=== PATIENT | female | born 1960 | race Caucasian/White ===

== ENCOUNTER → 2018-11-17 | Outpatient (CLI) | payer BC ==
--- NOTE | 2018-11-20 07:08 | MM ---
Reason for exam: screening (asymptomatic). Last mammogram was performed 2 years and 11 months ago. History: Patient is postmenopausal and had first child at age 31. MG Screening Mammo w CAD Bilateral CC and MLO view(s) were taken. Prior study comparison: December 18, 2015, bilateral MG screening mammo w CAD. June 22, 2013, bilateral digital screening mammo w/CAD. There are multiple less than 1 cm equal oval densities in the breasts. There is a benign-appearing calcification in the right breast. ASSESSMENT: Incomplete: need additional imaging evaluation, BI-RAD 0 RECOMMENDATION: Special view mammogram and ultrasound of the right breast.
== END ==
LOC: RADMAMWWP 10:43
PROVIDERS: ATTEND Family Medicine
DX: Z12.31 Encounter for screening mammogram for malignant neoplasm of breast (principal)
CPT/HCPCS: 77067

== ENCOUNTER → 2018-12-08 | Outpatient (CLI) | payer BC ==
--- NOTE | 2018-12-09 11:34 | MM ---
Reason for exam: additional evaluation requested from abnormal screening. Last mammogram was performed 1 month ago. History: Patient is postmenopausal and had first child at age 31. Physical Findings: Nurse did not find any significant physical abnormalities on exam. MG 3D Work Up W/Cad RYAN Bilateral spot compression CC, spot compression MLO, and ML view(s) were taken. Prior study comparison: November 17, 2018, bilateral MG screening mammo w CAD. December 18, 2015, bilateral MG screening mammo w CAD. There are scattered fibroglandular densities. Finding: There is an equal density (isodense), circumscribed round mass in the upper outer quadrant, middle, subareolar position of the right breast and anterior upper outer quadrant right CC view. These results were verbally communicated with the patient and result sheet given to the patient on 12/08/18. ASSESSMENT: Incomplete: need additional imaging evaluation, BI-RAD 0 RECOMMENDATION: Ultrasound of both breasts.
--- NOTE | 2018-12-09 11:37 | USB ---
Reason for exam: additional evaluation requested from abnormal screening. History: Patient is postmenopausal and had first child at age 31. US Breast Workup Limited RYAN Right limited breast ultrasound including focal area of concern, retroareolar and axilla demonstrates a 0.6 x 0.3 x 0.4cm mixed lesion at 10 o'clock and a 0.3 x 0.2 x 0.2cm lesion too small to characterize at 12 o'clock. Left limited breast ultrasound including focal area of concern, retroareolar and axilla demonstrates a 0.5 x 0.2 x 0.4cm mixed lesion at 3 o'clock, a 1.5 x 1.0 x 0.4cm mixed lesion at 9 o'clock, a 0.3 x 0.2 x 0.2cm lesion too small to characterize at 12 o'clock, a 0.4 x 0.7cm solid lesion with shadowing at 12 o'clock for which a biopsy is recommended and a 0.5 x 0.3 x 0.6cm mixed lesion at 11:30. These results were verbally communicated with the patient and result sheet given to the patient on 12/08/18. ASSESSMENT: Suspicious, BI-RAD 4 RECOMMENDATION: Ultrasound core biopsy of the left breast. (12 o'clock) Called Dr. Buchanan with mammographic findings and has scheduled an appointment for the patient for 12/22/18 at 2:[address] Alejandra. Biopsy scheduled for 12/23/18 at 11:20. PRELIMINARY REPORT CALLED AND FAXED TO DR. ALEJANDRA ON 12/09/18.
== END ==
LOC: RADMAMWWP 08:58
PROVIDERS: ATTEND Family Medicine
DX: R92.8 Other abnormal and inconclusive findings on diagnostic imaging of breast (principal)
CPT/HCPCS: 77062; 77066

== ENCOUNTER → 2018-12-19 | Outpatient (CLI) | payer BC ==
--- NOTE | 2018-12-20 09:34 | XR ---
EXAMINATION TYPE: XR chest 2V DATE OF EXAM: 12/19/2018 COMPARISON: Prior chest x-ray 09/30/2016 HISTORY: Chest pain, chest congestion TECHNIQUE: Frontal and lateral views of the chest are obtained. FINDINGS: Patient is rotated. Prominent lung volumes are again noted and suggest underlying COPD. The re is no focal air space opacity, pleural effusion, or pneumothorax seen. The cardiac silhouette siz e is within normal limits. The osseous structures are intact. IMPRESSION: No acute cardiopulmonary process. Correlate for COPD.
== END | disposition home or self-care (01) ==
LOC: RADXRMAIN 15:57
PROVIDERS: ATTEND Family Medicine
DX: R07.89 Other chest pain (principal)
CPT/HCPCS: 71046

== ENCOUNTER → 2018-12-22 | Outpatient (CLI) | payer BC ==
[2018-12-22 14:16] VITALS: BP 121/85; PULSE 79; RESP 18; TEMP 97.8; BMI 25.8
--- NOTE | 2018-12-22 14:38 | P.GSHP ---
History of Present Illness H&P Date: 12/22/18 Chief Complaint: abnormal left breast ultrasound Ana Lilia is a 58-year-old white female who presents following a routine screening mammogram of the breast. After mammogram was recommended that she undergo bilateral ultrasound and an ultrasound 8.7 cm solid lesion was noted at the 12 o'clock position of the left breast. Patient does not feel any masses in her breast. She has no skin changes in her breast. She has no abnormal nipple discharge or changes. She has no history of any trauma or infection in her breast. Family history: 1.father: neck cancer testicular cancer Hormonal history: menarche: 14 : 3, 2 children 1 [place], first at 29, breast fed: no menopause: ablation at 52 hot flashes until 55 BCP: 6 years hormones: none Past Surgical History: none Past Medical History: 1. high cholesterol 2. HTN 3. depression Social History: smoke: Diminished to very rare at this time used to smoke a pack every 3 days alcohol: weekly drugs: none - Constitutional Constitutional: Reports sweats - EENT Eyes: denies blurred vision, denies pain Ears: deny: decreased hearing, tinnitus Ears, nose, mouth and throat: Denies headache, Denies sore throat - Breasts Breasts: bilateral: as per HPI - Cardiovascular Cardiovascular: Reports high blood pressure, Denies chest pain, Denies shortness of breath - Respiratory Respiratory: Reports cough - Gastrointestinal Gastrointestinal: Denies abdominal pain, Denies diarrhea, Denies nausea, Denies vomiting - Genitourinary (Female) Genitourinary: Denies dysuria, Denies hematuria - Menstruation Menstruation: Reports postmenopausal - Musculoskeletal Musculoskeletal: Denies myalgias - Integumentary Integumentary: Denies pruritus, Denies rash - Neurological Neurological: Denies numbness, Denies weakness - Psychiatric Comment: uses Zoloft after stopping this at this time Psychiatric: Denies anxiety, Denies depression - Endocrine Endocrine: Denies fatigue, Denies weight change - Hematologic/Lymphatic Comment: baby aspirin - Allergic/Immunologic Allergic/Immunologic: Reports as per HPI Past Medical History Past Medical History: Hyperlipidemia, Hypertension History of Any Multi-Drug Resistant Organisms: None Reported Past Surgical History: Uterine Ablation Past Anesthesia/Blood Transfusion Reactions: No Reported Reaction Past Psychological History: No Psychological Hx Reported Smoking Status: Current some day smoker Past Alcohol Use History: Occasional Past Drug Use History: None Reported Medications and Allergies Home Medications Medication Instructions Recorded Confirmed Type Sertraline HCl [Zoloft] 50 mg PO DAILY 07/25/14 12/12/18 History Aspirin [Adult Low Dose Aspirin EC] 81 mg PO DAILY 12/12/18 12/12/18 History Hydrochlorothiazide [Hydrodiuril] 12.5 mg PO DAILY 12/12/18 12/12/18 History Lisinopril [Zestril] 5 mg PO DAILY 12/12/18 12/12/18 History Pravastatin Sodium 80 mg PO DAILY 12/12/18 12/12/18 History Allergies Allergy/AdvReac Type Severity Reaction Status Date / Time codeine Allergy Nausea & Verified 12/12/18 12:53 Vomiting Surgical - Exam BMI 25.9 - General well developed, well nourished, no distress - Eyes normal ocular movement - ENT no hearing loss, no congestion - Neck no masses, trachea midline - Respiratory normal respiratory effort, clear to auscultation - Cardiovascular Rhythm: regular Heart Sounds: normal: S1, S2 - Abdomen Abdomen: soft - Integumentary normal turgor - Neurologic no disoriented, no combative - Musculoskeletal normal gait, normal posture - Psychiatric oriented to time, oriented to person, oriented to place, speech is normal, memory intact Breast examination: Right breast: Multi-positional exam no dominant masses or nodules of concern nipple is inverted which is chronic Right axilla: No adenopathy of concern Left breast: Multiple positional exam fibrocystic changes, chronic nipple inversion no dominant masses or nodules of concern Left axilla: No adenopathy of concern Results Mammogram and ultrasound results reviewed Assessment and Plan Assessment: Impression: 1. Radiographic abnormality left breast 2. Fibrocystic breast changes 3. Chronically inverted nipples 4. Hypertension 5. High cholesterol Plan: 1. Ultrasound-guided core biopsy left breast 2. Follow-up 1 week after biopsy 3. Medical management of medical conditions Cc: Dr. Buchanan
== END ==
LOC: WWCWWP 13:56
PROVIDERS: ATTEND Surgery
DX: Z53.9 Procedure and treatment not carried out, unspecified reason (principal)

== ENCOUNTER → 2018-12-23 | Day surgery (SDC) | payer BC ==
[2018-12-23 10:42] VITALS: BP 122/81; PULSE 64; RESP 16; TEMP 98.7; BMI 26.5
--- NOTE | 2018-12-26 08:38 | USB ---
US Discontinued Breast Bx LT EXAMINATION TYPE: US discontinued breast bx LT, US biopsy breast VAD LT DATE OF EXAM: 12/23/2018 COMPARISON: Bilateral breast ultrasound dated 12/08/2018 CLINICAL HISTORY: Left breast mass for which biopsy was recommended. TECHNIQUE: Preprocedural targeted ultrasound was performed of the left breast at the 12:00 position at the location of the previously seen 4 x 7 mm solid lesion with shadowing for which biopsy was recommended. On preprocedural imaging multiple areas of dense breast tissue create shadowing from dense tissue and ligaments however no reproducible solid lesion was seen. Multiple small cystic masses are appreciated at the 12:00 position measuring 3 mm, 2 mm, 3 mm, and 4 mm. These are benign findings. Findings and recommendation for short-term three-month precautionary left breast ultrasound were discussed with the patient. IMPRESSION: BI-RADS 3-probably benign. No suspicious sonographic mass was seen on preprocedural ultrasound at the 12:00 position. Therefore short-term three-month follow-up ultrasound will be performed as a precautionary measure. RECOMMENDATION: Ultrasound of the left breast in 3 months.
== END ==
LOC: RADUSWWP 10:16
PROVIDERS: ATTEND Surgery
DX: N60.12 Diffuse cystic mastopathy of left breast (principal); Z53.8 Procedure and treatment not carried out for other reasons; R92.8 Other abnormal and inconclusive findings on diagnostic imaging of breast; Z88.5 Allergy status to narcotic agent

== ENCOUNTER 2019-04-05 07:19 | Day surgery (SDC) | payer BC ==
[2019-03-31 10:40] VITALS: BMI 25.7
[~2019-04-05 07:19] MED LIST: LACTATED RINGERS 1,000 ML IV SCH; LIDOCAINE 1% 20 ML VIAL (10MG/ML) FOR IV START INTRADERMA PRN
[2019-04-05 07:32] VITALS: RESP 16; TEMP 96.8
--- NOTE | 2019-04-05 07:41 | P.GSHP ---
History of Present Illness H&P Date: 04/05/19 CHIEF COMPLAINT: Colon screen HISTORY OF PRESENT ILLNESS: The patient is a 59-year-old female who presents for colon screen. Lower endoscopy was offered for further evaluation and management. PAST MEDICAL HISTORY: Please see list. PAST SURGICAL HISTORY: Please see list. MEDICATIONS: Please see list. ALLERGIES: Please see list. SOCIAL HISTORY: No illicit drug use FAMILY HISTORY: No reports of Crohn disease or ulcerative colitis. REVIEW OF ORGAN SYSTEMS: CONSTITUTIONAL: No reports of fevers or chills. PHYSICAL EXAM: VITAL SIGNS: Stable GENERAL: Well-developed pleasant in no acute distress. HEENT: No scleral icterus. Extraocular movements grossly intact. Moist buccal mucosa. NECK: Supple without lymphadenopathy. CHEST: Unlabored respirations. Equal bilateral excursions. CARDIOVASCULAR: Regular rate and rhythm. Distal 2+ pulses. ABDOMEN: Soft, nontender, nondistended. MUSCULOSKELETAL: No clubbing, cyanosis, or edema. ASSESSMENT: 1. Colon screen. PLAN: 1. Recommend proceeding with a lower endoscopy Past Medical History Past Medical History: Hyperlipidemia, Hypertension Additional Past Medical History / Comment(s): hx. colon polyps, bicuspid valve- dr. monitoring History of Any Multi-Drug Resistant Organisms: None Reported Past Surgical History: Uterine Ablation Additional Past Surgical History / Comment(s): colonoscopy Past Anesthesia/Blood Transfusion Reactions: No Reported Reaction Smoking Status: Current some day smoker - Past Family History Father Family Medical History: Cancer Medications and Allergies Home Medications Medication Instructions Recorded Confirmed Type Sertraline HCl [Zoloft] 50 mg PO DAILY 07/25/14 04/05/19 History Aspirin [Adult Low Dose Aspirin EC] 81 mg PO DAILY 12/12/18 04/05/19 History Hydrochlorothiazide [Hydrodiuril] 12.5 mg PO DAILY 12/12/18 04/05/19 History Lisinopril [Zestril] 5 mg PO DAILY 12/12/18 03/31/19 History Pravastatin Sodium 80 mg PO HS 12/12/18 04/05/19 History Ezetimibe [Zetia] 10 mg PO DAILY 03/31/19 04/05/19 History L.acidoph,Paracasei, B.lactis 1 each PO DAILY 03/31/19 04/05/19 History [Probiotic] Allergies Allergy/AdvReac Type Severity Reaction Status Date / Time codeine Allergy Nausea & Verified 03/31/19 10:30 Vomiting Surgical - Exam Vital Signs Temp Pulse Resp BP Pulse Ox 96.8 F L 80 16 133/86 97 04/05/19 07:30 04/05/19 07:30 04/05/19 07:30 04/05/19 07:30 04/05/19 07:30
[2019-04-05] MEDS ORDERED: PROPOFOL 10 MG/ML 20 ML VIAL IV ONE (08:01)
--- NOTE | 2019-04-05 08:30 | P.PCN ---
Date of Procedure: 04/05/19 Description of Procedure: PREOPERATIVE DIAGNOSIS: Colonoscopy screening POSTOPERATIVE DIAGNOSIS: Colonoscopy screening Transverse colon polyp. Sigmoid colon polyps Severe sigmoid diverticulosis External hemorrhoids, stage II Internal hemorrhoids, stage I Rectal colon polyps OPERATION: Colonoscopy to the ileocecal valve and appendiceal orifice. Colonoscopy with multiple cold forceps biopsies. SURGEON: Lia Jean MD. ANESTHESIA: MAC. INDICATIONS: The patient is a 59-year-old female who presents for colonoscopy screening. Last colonoscopy 10 years ago. Benefits and risks were described and informed consent was obtained. DESCRIPTION OF PROCEDURE: The patient had undergone Suprep. He had been brought into the operating room and laid in the left lateral decubitus position. After adequate intravenous sedation, the rectum was examined with 2% lidocaine jelly. External hemorrhoids were encountered. The rectal tone was within normal limits. No lesions were palpated in the rectal vault. An Olympus colonoscope was advanced until the ileocecal valve and appendiceal orifice were clearly viewed. The prep was good with visualization of the mucosal folds. Severe diverticulosis was encountered. Multiple colonic polyps were found and cold forcep biopsy. No evidence of focal colitis was found. Retroflexion of the scope demonstrated grade 1 internal hemorrhoids without active bleeding or inflammation. The colon was desufflated. The patient had tolerated the procedure well. Withdrawal time was over 6 minutes. FINDINGS: Aronchick preparation quality scale 1 (1-5) Internal hemorrhoids, grade 1 External hemorrhoids, grade 2. No arteriovenous malformations. Severe sigmoid diverticulosis redundant sigmoid colon requiring abdominal wall pressure Removal of 4 polyps: - Cold forceps biopsy at 30 cm from the anal verge, 4 mm polyp, sigmoid colon - Cold forceps biopsy at 25 cm from the anal verge, 3 mm polyp, sigmoid colon - Cold forceps biopsy at 10 cm from the anal verge, 4 mm polyp, rectum - Cold forceps biopsy at mid transverse colon, 5 mm polyp. No focal colitis. RECOMMENDATIONS: Given severity of tubular adenomas, recommend repeat colonoscopy 3 years, 2021. Plan - Discharge Summary Discharge Rx Participant: Yes New Discharge Prescriptions: No Action Sertraline HCl [Zoloft] 50 mg PO DAILY Lisinopril [Zestril] 5 mg PO DAILY Hydrochlorothiazide [Hydrodiuril] 12.5 mg PO DAILY Pravastatin Sodium 80 mg PO HS Aspirin [Adult Low Dose Aspirin EC] 81 mg PO DAILY L.acidoph,Paracasei, B.lactis [Probiotic] 1 each PO DAILY Ezetimibe [Zetia] 10 mg PO DAILY Discharge Medication List Sertraline HCl [Zoloft] 50 mg PO DAILY 07/25/14 [History] Aspirin [Adult Low Dose Aspirin EC] 81 mg PO DAILY 12/12/18 [History] Hydrochlorothiazide [Hydrodiuril] 12.5 mg PO DAILY 12/12/18 [History] Lisinopril [Zestril] 5 mg PO DAILY 12/12/18 [History] Pravastatin Sodium 80 mg PO HS 12/12/18 [History] Ezetimibe [Zetia] 10 mg PO DAILY 03/31/19 [History] L.acidoph,Paracasei, B.lactis [Probiotic] 1 each PO DAILY 03/31/19 [History] Follow up Appointment(s)/Referral(s): Lia Jean MD [STAFF PHYSICIAN] - As Needed Patient Instructions/Handouts: Diverticulosis (DC), Colorectal Polyps (DC), Diverticulosis Diet (GEN) Activity/Diet/Wound Care/Special Instructions: Repeat colonoscopy in 3 years, 2021 Discharge Disposition: HOME SELF-CARE
[2019-04-05 08:56] VITALS: BP 118/70; PULSE 66
== END 2019-04-05 09:16 | disposition home or self-care (01) ==
LOC: ORWHC2ENDO 07:19
PROVIDERS: ATTEND Surgery Plastic and Reconstructive Surgery
DX: Z12.11 Encounter for screening for malignant neoplasm of colon (principal); D12.5 Benign neoplasm of sigmoid colon; D12.3 Benign neoplasm of transverse colon; K63.5 Polyp of colon; K62.1 Rectal polyp; K64.0 First degree hemorrhoids; K64.1 Second degree hemorrhoids; K57.30 Diverticulosis of large intestine without perforation or abscess without bleeding; Q43.8 Other specified congenital malformations of intestine; E78.5 Hyperlipidemia, unspecified; I10 Essential (primary) hypertension; F32.9 Major depressive disorder, single episode, unspecified; F17.200 Nicotine dependence, unspecified, uncomplicated; Z79.82 Long term (current) use of aspirin; Z79.899 Other long term (current) drug therapy; Z88.5 Allergy status to narcotic agent
CPT/HCPCS: 88305; 45380; J2704

== ENCOUNTER → 2019-04-24 | Outpatient (CLI) | payer BC ==
--- NOTE | 2019-04-24 11:28 | USB ---
Reason for exam: follow-up at short interval from prior study. History: Patient is postmenopausal and had first child at age 31. US discontinued breast bx LT of the left breast, December 23, 2018. Physical Findings: Nurse Summary: all soft, nodular, movable (nurse ts). US Breast LT Left complete breast ultrasound includes all four quadrants, the retroareolar region and axilla. Finding demonstrates a 0.3cm questionable duct at 10 o'clock, bilobed cyst, questionable duct ectasia, seen previously as well. Numerous additional benign cyst throughout. No suspicious lesion at the previous 12 o'clock position. These results were verbally communicated with the patient and result sheet given to the patient on 04/24/19. ASSESSMENT: Probably benign, BI-RAD 3 RECOMMENDATION: Follow-up diagnostic mammogram of both breasts in 6 months.
== END | disposition home or self-care (01) ==
LOC: RADUSWWP 10:18
PROVIDERS: ATTEND Family Medicine
DX: R92.8 Other abnormal and inconclusive findings on diagnostic imaging of breast (principal)

== ENCOUNTER → 2020-05-01 | Outpatient (CLI) | payer BC ==
--- NOTE | 2020-05-01 11:55 | MM ---
Reason for exam: additional evaluation requested from prior study. Last mammogram was performed 1 year and 5 months ago. History: Patient is postmenopausal and had first child at age 31. US discontinued breast bx LT of the left breast, December 23, 2018. Physical Findings: Nurse did not find any significant physical abnormalities on exam. MG Diagnostic Mammo w CAD RYAN Bilateral CC and MLO view(s) were taken. Prior study comparison: December 08, 2018, bilateral MG 3d work up w/cad RYAN. November 17, 2018, bilateral MG screening mammo w CAD. The breast tissue is heterogeneously dense. This may lower the sensitivity of mammography. Persistent 7mm density upper outer quadrant left breast 8cm from nipple. These results were verbally communicated with the patient and result sheet given to the patient on 05/01/20. ASSESSMENT: Incomplete: need additional imaging evaluation, BI-RAD 0 RECOMMENDATION: Ultrasound of the left breast.
--- NOTE | 2020-05-01 11:56 | USB ---
Reason for exam: additional evaluation requested from abnormal screening. History: Patient is postmenopausal and had first child at age 31. US discontinued breast bx LT of the left breast, December 23, 2018. US Breast Limited LT Left limited breast ultrasound including focal area of concern, retroareolar and axilla demonstrates a 4 x 2 x 4mm cystic lesion at 12 o'clock, a 9 x 3 x 7mm cystic cluster at 12 o'clock, a 4 x 3 x 5mm cystic lesion at 3 o'clock and a 11mm cystic lesion at the posterior nipple. These results were verbally communicated with the patient and result sheet given to the patient on 05/01/20. ASSESSMENT: Benign, BI-RAD 2 RECOMMENDATION: Routine screening mammogram of both breasts in 1 year.
== END | disposition home or self-care (01) ==
LOC: RADMAMWWP 10:10
PROVIDERS: ATTEND Family Medicine
DX: R92.8 Other abnormal and inconclusive findings on diagnostic imaging of breast (principal)
CPT/HCPCS: 77066

== ENCOUNTER 2020-07-01 12:17 | Observation (INO) | payer BC ==
[2020-07-01] MEDS ORDERED: NITROGLYCERIN OINT 1 INCH/GM PACKET TOPICAL STA (12:50)
[2020-07-01] MEDS ORDERED: ASPIRIN 81 MG PO STA (12:50)
[2020-07-01] MEDS ORDERED: SODIUM CHLORIDE 0.9% 500 ML 500 ML IV STA (12:50)
--- NOTE | 2020-07-01 12:50 | ED ---
General Adult HPI - General Chief complaint: Chest Pain Stated complaint: Dizzy, Chest Pressure Time Seen by Provider: 07/01/20 12:25 Source: patient, family, RN notes reviewed, old records reviewed Mode of arrival: ambulatory Limitations: no limitations - History of Present Illness Initial comments: This is a 60-year-old female with a past medical history significant for smoking high blood pressure and high cholesterol. Patient states she's been having intermittent right-sided chest pain over the last 2-3 days. Patient states she's been nauseated on occasion with this and lightheaded. Patient states today the pain is been constant and she describes it as a pressure in her chest. Patient states it is ongoing currently. Patient denies any syncopal episodes or near syncopal episodes. Patient denies any headache patient denies numbness or weakness. Patient denies any palpitations. Patient states she is not short of breath with the chest pain. Patient denies any abdominal pain patient denies nausea vomiting diarrhea. Patient denies any swelling to her legs or calf tenderness - Related Data Home Medications Medication Instructions Recorded Confirmed Sertraline HCl [Zoloft] 50 mg PO DAILY 07/25/14 04/05/19 Aspirin [Adult Low Dose Aspirin EC] 81 mg PO DAILY 12/12/18 04/05/19 Pravastatin Sodium 80 mg PO HS 12/12/18 04/05/19 hydroCHLOROthiazide [Hydrodiuril] 12.5 mg PO DAILY 12/12/18 04/05/19 lisinopriL [Zestril] 5 mg PO DAILY 12/12/18 03/31/19 Ezetimibe [Zetia] 10 mg PO DAILY 03/31/19 04/05/19 L.acidoph,Paracasei, B.lactis 1 each PO DAILY 03/31/19 04/05/19 [Probiotic] Allergies Allergy/AdvReac Type Severity Reaction Status Date / Time codeine Allergy Nausea & Verified 07/01/20 12:27 Vomiting Review of Systems ROS Statement: Those systems with pertinent positive or pertinent negative responses have been documented in the HPI. ROS Other: All systems not noted in ROS Statement are negative. Past Medical History Past Medical History: Hyperlipidemia, Hypertension Additional Past Medical History / Comment(s): hx. colon polyps, bicuspid valve- drWindy monitoring History of Any Multi-Drug Resistant Organisms: None Reported Past Surgical History: Uterine Ablation Additional Past Surgical History / Comment(s): colonoscopy Past Anesthesia/Blood Transfusion Reactions: No Reported Reaction Past Psychological History: No Psychological Hx Reported Smoking Status: Current some day smoker Past Alcohol Use History: Occasional Past Drug Use History: None Reported - Past Family History Father Family Medical History: Cancer General Exam - General Exam Comments Initial Comments: GENERAL: Patient is well-developed and well-nourished. Patient is nontoxic and well- hydrated and is in mild distress. ENT: Neck is soft and supple. No significant lymphadenopathy is noted. Oropharynx is clear. Moist mucous membranes. Neck has full range of motion without eliciting any pain. EYES: The sclera were anicteric and conjunctiva were pink and moist. Extraocular movements were intact and pupils were equal round and reactive to light. Eyelids were unremarkable. PULMONARY: Unlabored respirations. Good breath sounds bilaterally. No audible rales rhonchi or wheezing was noted. CARDIOVASCULAR: There is a regular rate and rhythm without any murmurs gallops or rubs. ABDOMEN: Soft and nontender with normal bowel sounds. SKIN: Skin is clear with no lesions or rashes and otherwise unremarkable. NEUROLOGIC: Patient is alert and oriented x3. Cranial nerves II through XII are grossly intact. Motor and sensory are also intact. Normal speech, volume and content. Symmetrical smile. MUSCULOSKELETAL: Normal extremities with adequate strength and full range of motion. No lower extremity swelling or edema. No calf tenderness. LYMPHATICS: No significant lymphadenopathy is noted PSYCHIATRIC: Normal psychiatric evaluation. Limitations: no limitations Course Vital Signs 07/01/20 12:24 Temperature 98.1 F Pulse Rate 82 Respiratory 18 Rate Blood Pressure 144/94 O2 Sat by Pulse 99 Oximetry Medical Decision Making - Medical Decision Making EKG shows normal sinus rhythm at 73 bpm IA interval 166 dresses 88 QT interval 4 2 QTC is 442 per patient's EKG shows no ST segment elevation or depression. Chest x-ray shows no acute abnormalities. Patient states and nitroglycerin paste did decrease her pain. Heparin was started the patient is in stable angina picture. Heparin and aspirin Nitropaste the floor. I spoke with Dr. Gonzalez agreed to admit the patient admitted the patient remaining orders. - Lab Data Result diagrams: 07/01/20 12:36 07/01/20 12:36 Lab Results 08/24/20 08/24/20 08/24/20 Range/Units 12:36 12:36 12:36 WBC 9.1 (3.8-10.6) k/uL RBC 5.11 (3.80-5.40) m/uL Hgb 14.8 (11.4-16.0) gm/dL Hct 45.3 (34.0-46.0) % MCV 88.8 (80.0-100.0) fL MCH 28.9 (25.0-35.0) pg MCHC 32.6 (31.0-37.0) g/dL RDW 12.6 (11.5-15.5) % Plt Count 477 H (150-450) k/uL Neutrophils % 65 % Lymphocytes % 27 % Monocytes % 4 % Eosinophils % 2 % Basophils % 1 % Neutrophils # 5.9 (1.3-7.7) k/uL Lymphocytes # 2.5 (1.0-4.8) k/uL Monocytes # 0.4 (0-1.0) k/uL Eosinophils # 0.2 (0-0.7) k/uL Basophils # 0.1 (0-0.2) k/uL PT 9.9 (9.0-12.0) sec INR 1.0 (<1.2) APTT 23.1 (22.0-30.0) sec D-Dimer <0.17 (<0.60) mg/L FEU Sodium 137 (137-145) mmol/L Potassium 4.6 (3.5-5.1) mmol/L Chloride 104 (98-107) mmol/L Carbon Dioxide 26 (22-30) mmol/L Anion Gap 7 mmol/L BUN 11 (7-17) mg/dL Creatinine 0.49 L (0.52-1.04) mg/dL Est GFR (CKD-EPI)AfAm >90 (>60 ml/min/1.73 sqM) Est GFR (CKD-EPI)NonAf >90 (>60 ml/min/1.73 sqM) Glucose 109 H (74-99) mg/dL Calcium 10.0 (8.4-10.2) mg/dL Magnesium 2.1 (1.6-2.3) mg/dL Total Bilirubin 0.7 (0.2-1.3) mg/dL AST 28 (14-36) U/L ALT 26 (4-34) U/L Alkaline Phosphatase 56 (38-126) U/L Troponin I (0.000-0.034) ng/mL NT-Pro-B Natriuret Pep pg/mL Total Protein 7.4 (6.3-8.2) g/dL Albumin 4.7 (3.5-5.0) g/dL 07/01/20 07/01/20 Range/Units 12:36 12:36 WBC (3.8-10.6) k/uL RBC (3.80-5.40) m/uL Hgb (11.4-16.0) gm/dL Hct (34.0-46.0) % MCV (80.0-100.0) fL MCH (25.0-35.0) pg MCHC (31.0-37.0) g/dL RDW (11.5-15.5) % Plt Count (150-450) k/uL Neutrophils % % Lymphocytes % % Monocytes % % Eosinophils % % Basophils % % Neutrophils # (1.3-7.7) k/uL Lymphocytes # (1.0-4.8) k/uL Monocytes # (0-1.0) k/uL Eosinophils # (0-0.7) k/uL Basophils # (0-0.2) k/uL PT (9.0-12.0) sec INR (<1.2) APTT (22.0-30.0) sec D-Dimer (<0.60) mg/L FEU Sodium (137-145) mmol/L Potassium (3.5-5.1) mmol/L Chloride (98-107) mmol/L Carbon Dioxide (22-30) mmol/L Anion Gap mmol/L BUN (7-17) mg/dL Creatinine (0.52-1.04) mg/dL Est GFR (CKD-EPI)AfAm (>60 ml/min/1.73 sqM) Est GFR (CKD-EPI)NonAf (>60 ml/min/1.73 sqM) Glucose (74-99) mg/dL Calcium (8.4-10.2) mg/dL Magnesium (1.6-2.3) mg/dL Total Bilirubin (0.2-1.3) mg/dL AST (14-36) U/L ALT (4-34) U/L Alkaline Phosphatase (38-126) U/L Troponin I <0.012 (0.000-0.034) ng/mL NT-Pro-B Natriuret Pep 66 pg/mL Total Protein (6.3-8.2) g/dL Albumin (3.5-5.0) g/dL Critical Care Time Critical Care Time: Yes Total Critical Care Time: 35 Disposition Clinical Impression: Unstable angina pectoris Disposition: ADMITTED IP TO THIS HOSP Referrals: Damir Buchanan DO [Primary Care Provider] - 1-2 days Time of Disposition: 14:40
[2020-07-01 13:33] LABS: Basophils # (A) 0.1 k/uL (0-0.2); Basophils % (A) 1 %; Eosinophils # (A) 0.2 k/uL (0-0.7); Eosinophils % (A) 2 %; HCT 45.3 % (34.0-46.0); HGB 14.8 gm/dL (11.4-16.0); Lymphocytes # (A) 2.5 k/uL (1.0-4.8); Lymphocytes % (A) 27 %; MCH 28.9 pg (25.0-35.0); MCHC 32.6 g/dL (31.0-37.0); MCV 88.8 fL (80.0-100.0); Mean Platelet Volume 7.1; Monocytes # (A) 0.4 k/uL (0-1.0); Monocytes % (A) 4 %; Neutrophils # (A) 5.9 k/uL (1.3-7.7); Neutrophils % (A) 65 %; Platelet Count 477 k/uL (150-450); RBC 5.11 m/uL (3.80-5.40); RDW 12.6 % (11.5-15.5); WBC 9.1 k/uL (3.8-10.6)
[2020-07-01 13:41] LABS: ALT 26 U/L (4-34); AST 28 U/L (14-36); African American GFR (CKD) >90 (>60 ml/min/1.73 sqM); Albumin 4.7 g/dL (3.5-5.0); Alkaline Phosphatase 56 U/L (38-126); Anion Gap 7 mmol/L; Blood Urea Nitrogen 11 mg/dL (7-17); Carbon Dioxide 26 mmol/L (22-30); Chloride 104 mmol/L (98-107); Glucose 109 mg/dL (74-99); Magnesium 2.1 mg/dL (1.6-2.3); Non-African American GFR(CKD) >90 (>60 ml/min/1.73 sqM); Sodium 137 mmol/L (137-145); Total Bilirubin 0.7 mg/dL (0.2-1.3); Total Protein 7.4 g/dL (6.3-8.2)
[2020-07-01 13:54] LABS: Partial Thromboplastin Time 23.1 sec (22.0-30.0); Prothrombin Time 9.9 sec (9.0-12.0)
[2020-07-01 14:02] LABS: Potassium 4.6 mmol/L (3.5-5.1)
[2020-07-01 14:08] LABS: D-Dimer <0.17 mg/L FEU (<0.60)
--- NOTE | 2020-07-01 14:13 | XR ---
EXAMINATION TYPE: XR chest 2V DATE OF EXAM: 07/01/2020 COMPARISON: 12/19/2018 HISTORY: 60-year-old female with chest pain TECHNIQUE: PA and lateral views FINDINGS: Heart normal size. Mild elongation/tortuosity of the thoracic aorta. Some mild patchy right midlung o pacity in the perihilar region. No other consolidation or pleural effusion seen. IMPRESSION: Some mild patchy atelectasis versus early developing infiltrate at the right perihilar region.
[2020-07-01] MEDS ORDERED: HEPARIN SODIUM,PORCINE 5,000 UNIT/ML 1 ML VIAL IV ONE (14:38)
[2020-07-01] MEDS ORDERED: NITROGLYCERIN SL TABS 0.4 MG TAB SUBLINGUAL PRN (14:40)
[2020-07-01] MEDS ORDERED: HEPARIN SOD,PORK IN 0.45% NACL 25,000 UNIT in 0.45% NACL 1 250ML.BAG IV SCH (14:45)
[2020-07-01] MEDS: NITROGLYCERIN OINT 1 INCH/GM PACKET TOPICAL SCH (18:20)
[2020-07-01] MEDS: ACETAMINOPHEN TAB 325 MG TAB PO PRN (19:40)
--- NOTE | 2020-07-01 22:07 | P.HPIM ---
History of Present Illness H&P Date: 07/01/20 Chief Complaint: Chest pressure History of presenting complaint: This is a pleasant 60-year-old patient of Dr. Buchanan. Chronic stable medical conditions include hypertension, hyperlipidemia, bicuspid aortic valve that is being followed. Patient started taking Zoloft when the had has slowly over time try to taper it off. Patient now presents with 2 days' history of dizziness lightheadedness and heaviness in the chest. Also had an episode of passing out with nausea. No shortness of breath. Not really related to activity. Patient's had 2 prior episodes of passing out. Admitted for the same. Patient intermittently gets leg swelling but not currently. No fever no chills no cough. She smokes about 5 cigarettes a day. Review of systems: GEN.: None EYES: None HEENT: None NECK: None RESPIRATORY: As above CARDIOVASCULAR: As above GASTROINTESTINAL: None GENITOURINARY: None MUSCULOSKELETAL: None LYMPHATICS: None HEMATOLOGICAL: None PSYCHIATRY: None NEUROLOGICAL: None Past medical history to include: Hypertension, hyperlipidemia, bicuspid aortic valve, Social history: Lives with her . Smokes about 5 cigars a day. Alcohol occasionally. Physical examination: VITAL SIGNS: 98.1, 82, 18, 144/94, 99% on room air GENERAL: [BMI 28.3, laying in bed, comfortable EYES: Pupils equal. Conjunctiva normal. HEENT: External appearance of nose and ears normal, oral cavity grossly normal. NECK: JVD not raised; masses not palpable. HEART: First and second heart sounds are normal; no edema. LUNGS: Respiratory rate normal; fair air entry. ABDOMEN: Soft, nontender, liver spleen not palpable, no masses palpable. PSYCH: Alert and oriented x3; mood and affect normal. NEUROLOGICAL: Cranial nerves grossly intact; no facial asymmetry, power and sensation grossly intact. LYMPHATICS: No lymph nodes palpable in the axilla and neck INVESTIGATIONS, reviewed in the clinical context: White count 9.1 hemoglobin 14.8 platelets 477 potassium 4.6 creatinine 0.49 Troponin I 3 negative D-dimer less than 0.17 EKG tracing personally reviewed by me-normal sinus rhythm Chest x-ray film personally reviewed by me-questionable infiltrate right perihilar area Assessment: -This is a patient presents with 2 day history of chest pressure lightheaded dizzy in an episode of passing out. Cardiac risk factors include hypertension hyperlipidemia and nicotine dependence. EKG and troponins are normal. Left main disease needs to be ruled out. -Chronic nicotine dependence patient cigarette smoker -Essential hypertension -Hyperlipidemia -Bicuspid aortic valve Plan: 2-D echocardiogram to be done. Patient on aspirin. Nitropaste. Patient will be kept nothing by mouth after midnight for a stress test. Care was discussed with the patient question answered. Past Medical History Past Medical History: Hyperlipidemia, Hypertension Additional Past Medical History / Comment(s): hx. colon polyps, bicuspid valve- dr. ovalles/ [facility]/ History of Any Multi-Drug Resistant Organisms: None Reported Past Surgical History: Uterine Ablation Additional Past Surgical History / Comment(s): colonoscopy Past Anesthesia/Blood Transfusion Reactions: No Reported Reaction Past Psychological History: No Psychological Hx Reported Smoking Status: Current every day smoker Past Drug Use History: None Reported - Past Family History Father Family Medical History: Cancer Medications and Allergies Home Medications Medication Instructions Recorded Confirmed Type Pravastatin Sodium 80 mg PO DAILY 12/12/18 07/01/20 History lisinopriL [Zestril] 5 mg PO DAILY 12/12/18 07/01/20 History Ezetimibe [Zetia] 10 mg PO DAILY 03/31/19 07/01/20 History Aspirin 81 mg PO DAILY 07/01/20 07/01/20 History Sertraline [Zoloft] 25 mg PO DAILY 07/01/20 07/01/20 History hydroCHLOROthiazide 25 mg PO DAILY 07/01/20 07/01/20 History Allergies Allergy/AdvReac Type Severity Reaction Status Date / Time codeine AdvReac Nausea & Verified 07/01/20 14:54 Vomiting Physical Exam Vitals: Vital Signs Temp Pulse Pulse Resp BP BP Pulse Ox 07/01/20 15:00 99 F 68 18 136/81 98 07/01/20 12:24 98.1 F 82 18 144/94 99 Intake and Output 07/01/20 07/01/20 07/01/20 06:59 14:59 22:59 Intake Total 240 Balance 240 Intake: Oral 240 Other: # Voids 1 Weight 72.575 kg Results CBC & Chem 7: 07/01/20 12:36 07/01/20 12:36 Labs: Abnormal Lab Results - Last 24 Hours (Table) 07/01/20 07/01/20 Range/Units 12:36 12:36 Plt Count 477 H (150-450) k/uL Creatinine 0.49 L (0.52-1.04) mg/dL Glucose 109 H (74-99) mg/dL Thrombosis Risk Factor Assmnt - Choose All That Apply Any of the Below Risk Factors Present?: No Other Risk Factors: No Other congenital or acquired thrombophilia - If yes, enter type in comment: No Thrombosis Risk Factor Assessment Level: Very Low Risk
[2020-07-02] MEDS: NITROGLYCERIN OINT 1 INCH/GM PACKET TOPICAL SCH ×2 (00:01→06:25)
[2020-07-02 02:58] LABS: Cholesterol 226 mg/dL (<200); HDL Cholesterol 45 mg/dL (40-60); LDL Cholesterol,Calculated 129 mg/dL (0-99); Triglycerides 262 mg/dL (<150)
[2020-07-02] MEDS: ACETAMINOPHEN TAB 325 MG TAB PO PRN (04:22)
[2020-07-02 04:35] VITALS: TEMP 97.8
--- NOTE | 2020-07-02 08:01 | P.CRDCN ---
History of Present Illness Consult date: 07/02/20 Requesting physician: Michael Gonzalez Reason for Consult (text): Unstable angina Chief complaint: dizziness, chest pressure History of present illness: This is a pleasant 60-year-old female patient with a past medical history of hypertension, hyperlipidemia, bicuspid aortic valve which is monitored by her primary care physician with periodic echocardiograms, in current smoker. She has a history of 3 episodes of syncope in the last 3 years or so at which time she will become nauseous, diaphoretic, very dizzy and lightheaded M has brief loss of consciousness. She had one of these episodes a couple days ago and the following day did not feel well. Complained of a pressure or tightness in her chest and feeling dizzy and lightheaded throughout the day. This prompted her to come to the emergency department. The episodes of syncope occur usually while she is sitting in the sun drinking wine. Chest x-ray on admission showed some mild patchy atelectasis versus early developing infiltrate at the right perihilar region. EKG shows normal sinus rhythm with no evidence of acute ischemia. Labs on admission show normal white blood cell count and hemoglobin, platelet count 477, d-dimer negative, potassium 4.6, BUN 11, creatinine 0.49, NT proBNP 66 and troponins negative 3. Blood pressure was initially high and is under good control this morning. She is currently on lisinopril 5 mg by mouth daily, hydrochlorothiazide 25 mg by mouth daily, Zoloft 25 mg by mouth daily, pravastatin 80 mg by mouth daily, aspirin 81 mg by mouth daily and that he had 10 mg by mouth daily. Past Medical History Past Medical History: Hyperlipidemia, Hypertension Additional Past Medical History / Comment(s): hx. colon polyps, bicuspid valve- dr. ovalles/ [place]/ History of Any Multi-Drug Resistant Organisms: None Reported Past Surgical History: Uterine Ablation Additional Past Surgical History / Comment(s): colonoscopy Past Anesthesia/Blood Transfusion Reactions: No Reported Reaction Past Psychological History: No Psychological Hx Reported Smoking Status: Current every day smoker Past Drug Use History: None Reported - Past Family History Father Family Medical History: Cancer Medications and Allergies Home Medications Medication Instructions Recorded Confirmed Type Pravastatin Sodium 80 mg PO DAILY 12/12/18 07/01/20 History lisinopriL [Zestril] 5 mg PO DAILY 12/12/18 07/01/20 History Ezetimibe [Zetia] 10 mg PO DAILY 03/31/19 07/01/20 History Aspirin 81 mg PO DAILY 07/01/20 07/01/20 History Sertraline [Zoloft] 25 mg PO DAILY 07/01/20 07/01/20 History hydroCHLOROthiazide 25 mg PO DAILY 07/01/20 07/01/20 History Allergies Allergy/AdvReac Type Severity Reaction Status Date / Time codeine AdvReac Nausea & Verified 07/01/20 14:54 Vomiting Physical Exam Vitals: Vital Signs Temp Pulse Pulse Resp BP BP Pulse Ox 07/02/20 03:00 97.8 F 85 18 123/76 97 07/01/20 21:00 98.1 F 63 18 116/70 98 07/01/20 15:00 99 F 68 18 136/81 98 07/01/20 12:24 98.1 F 82 18 144/94 99 Intake and Output 07/01/20 07/02/20 07/02/20 22:59 06:59 14:59 Intake Total 755.027 71.414 Balance 755.027 71.414 Intake: Intake, IV Titration 65.027 71.414 Amount Heparin Sod,Pork in 0.45% 65.027 71.414 NaCl 25,000 unit In 0.45 % NaCl 1 250ml.bag @ 12 UNITS/KG/HR 8.709 mls/hr IV .Q24H [facility] Rx#: [id number] Oral 690 Other: Voiding Method Toilet # Voids 1 1 PHYSICAL EXAMINATION: This is a 60-year-old female in no apparent distress at the time of my examination. VITAL SIGNS: Blood pressure 116/70, heart rate 63, respirations 18, temp 98.1F. Patient is 98 % on room air. HEENT: Head is atraumatic, normocephalic. Pupils are equal, round. Sclerae anicteric. Conjunctivae are clear. Mucous membranes of the mouth are moist. Neck is supple. There is no elevated jugular venous pressure. No carotid bruit is he brenna. CHEST EXAMINATION: Clear to auscultation bilaterally. No wheezes rales or rhonchi. Respirations even and nonlabored. HEART EXAMINATION: Heart regular, positive S1 and S2. No S3. No S4. With a soft systolic murmur. ABDOMEN: Soft, nontender. Bowel sounds are heard. No organomegaly noted. EXTREMITIES: 2+ peripheral pulses with no evidence of peripheral edema and no calf tenderness noted. NEUROLOGIC EXAMINATION: Patient is awake, alert and oriented x3. Results 07/01/20 12:36 07/01/20 12:36 Cardiac Enzymes 07/01/20 07/01/20 07/01/20 Range/Units 12:36 12:36 15:21 AST 28 (14-36) U/L Troponin I <0.012 <0.012 (0.000-0.034) ng/mL 07/01/20 Range/Units 18:29 AST (14-36) U/L Troponin I <0.012 (0.000-0.034) ng/mL Coagulation 07/01/20 07/01/20 07/02/20 Range/Units 12:36 21:17 06:03 PT 9.9 (9.0-12.0) sec APTT 23.1 53.5 H 47.4 H (22.0-30.0) sec Lipids 07/01/20 Range/Units 12:36 Triglycerides 262 H (<150) mg/dL Cholesterol 226 H (<200) mg/dL HDL Cholesterol 45 (40-60) mg/dL CBC 07/01/20 Range/Units 12:36 WBC 9.1 (3.8-10.6) k/uL RBC 5.11 (3.80-5.40) m/uL Hgb 14.8 (11.4-16.0) gm/dL Hct 45.3 (34.0-46.0) % Plt Count 477 H (150-450) k/uL Comprehensive Metabolic Panel 07/01/20 Range/Units 12:36 Sodium 137 (137-145) mmol/L Potassium 4.6 (3.5-5.1) mmol/L Chloride 104 (98-107) mmol/L Carbon Dioxide 26 (22-30) mmol/L BUN 11 (7-17) mg/dL Creatinine 0.49 L (0.52-1.04) mg/dL Glucose 109 H (74-99) mg/dL Calcium 10.0 (8.4-10.2) mg/dL AST 28 (14-36) U/L ALT 26 (4-34) U/L Alkaline Phosphatase 56 (38-126) U/L Total Protein 7.4 (6.3-8.2) g/dL Albumin 4.7 (3.5-5.0) g/dL Current Medications Generic Name Dose Route Start Last Admin Trade Name Freq PRN Reason Stop Dose Admin Acetaminophen 650 mg 07/01/20 19:35 07/02/20 04:22 Tylenol Tab PO 650 mg Q6HR PRN Administration Fever and/ or Pain Aspirin 325 mg 07/02/20 09:00 Aspirin PO DAILY [facility] Ezetimibe 10 mg 07/02/20 09:00 Zetia PO DAILY [facility] Hydrochlorothiazide 25 mg 07/02/20 09:00 Hydrodiuril PO DAILY [facility] Heparin Sodium/Sodium Chloride 250 mls @ 8.709 mls/hr 07/01/20 14:45 07/02/20 06:51 25,000 unit/ Sodium Chloride IV 12 units/kg/hr .Q24H [facility] 8.709 mls/hr Titration Protocol 12 UNITS/KG/HR Lisinopril 5 mg 07/02/20 09:00 Zestril PO DAILY [facility] Nitroglycerin 0.4 mg 07/01/20 14:40 Nitrostat SUBLINGUAL Q5M PRN Chest Pain Nitroglycerin 1 inch 07/01/20 18:00 07/02/20 06:25 Nitro-Bid Oint TOPICAL Not Given Q6HR [facility] Pravastatin Sodium 80 mg 07/02/20 09:00 Pravachol PO DAILY [facility] Sertraline HCl 25 mg 07/02/20 09:00 Zoloft PO DAILY [facility] Intake and Output 07/01/20 07/02/20 07/02/20 22:59 06:59 14:59 Intake Total 755.027 71.414 Balance 755.027 71.414 Intake: Intake, IV Titration 65.027 71.414 Amount Heparin Sod,Pork in 0.45% 65.027 71.414 NaCl 25,000 unit In 0.45 % NaCl 1 250ml.bag @ 12 UNITS/KG/HR 8.709 mls/hr IV .Q24H [facility] Rx#: [id number] Oral 690 Other: Voiding Method Toilet # Voids 1 1 07/01/20 12:36 07/01/20 12:36 EKG Interpretations (text) Sinus rhythm Assessment and Plan Assessment: #1 syncope #2 chest discomfort, acute coronary event has been ruled out, troponins negative 3, no evidence of acute ischemia noted on EKG #3 bicuspid aortic valve #4 hypertension #5 hyperlipidemia Plan: From cardiology's perspective we'll obtain a 2-D echo with Doppler to assess cardiac structure and function. We'll set the patient up for a stress echo to rule out underlying ischemia. Carotid duplex study. Check orthostatic blood pressures. Further recommendations to follow. PATTERN FILER note has been reviewed, I agree with a documented findings and plan of care. Patient was seen and examined.
[2020-07-02 08:12] VITALS: PULSE 69; RESP 16
[2020-07-02] MEDS ORDERED: lisinopriL 5 MG TAB PO SCH (09:00)
[2020-07-02] MEDS ORDERED: ASPIRIN 325 MG TAB PO SCH (09:00)
[2020-07-02] MEDS ORDERED: SERTRALINE 25 MG TAB PO SCH (09:00)
[2020-07-02] MEDS ORDERED: EZETIMIBE 10 MG TAB PO SCH (09:00)
[2020-07-02] MEDS ORDERED: PRAVASTATIN SODIUM 80 MG TAB PO SCH (09:00)
[2020-07-02] MEDS ORDERED: ASPIRIN 81 MG PO SCH (09:00)
[2020-07-02] MEDS ORDERED: hydroCHLOROthiazide 25 MG TAB PO SCH (09:00)
--- NOTE | 2020-07-02 09:01 | US ---
EXAMINATION TYPE: US carotid duplex BILAT DATE OF EXAM: 07/02/2020 COMPARISON: NONE CLINICAL HISTORY: dizziness, syncope. Smoker x years EXAM MEASUREMENTS: RIGHT: Peak Systolic Velocity (PSV) cm/sec ----- Right CCA: 75.4 ----- Right ICA: 105.6 ----- Right ECA: 67.7 ICA/CCA ratio: 1.4 RIGHT: End Diastole cm/sec ----- Right CCA: 29.2 ----- Right ICA: 51.2 ----- Right ECA: 15.4 LEFT: Peak Systolic Velocity (PSV) cm/sec ----- Left CCA: 77.5 ----- Left ICA: 86.7 ----- Left ECA: 57.2 ICA/CCA ratio: 1.1 LEFT: End Diastole cm/sec ----- Left CCA: 31.2 ----- Left ICA: 41.8 ----- Left ECA: 12.7 VERTEBRALS (direction of flow): Right Vertebral: Antegrade Left Vertebral: Antegrade Rhythm: Normal Minimal atherosclerotic disease, primarily at the carotid bulbs. Incidental left thyroid findings: multiple thyroid nodules are seen. The largest thyroid nodule is se en within the left inferior lobe measuring 4.8 x 2.5 x 2.4 cm, which is solid, hypoechoic, lobulated margin, with scattered calcifications. IMPRESSION: 1. No evidence of hemodynamically significant stenosis of the bilateral carotid arteries. Any stenosi s that may be present is less than 50%. 2. Multiple thyroid nodules, incompletely evaluated on current exam. The left thyroid demonstrates a 4.8 cm TI-RADS 5 - highly suspicious nodule, for which fine-needle aspiration is recommended. Complet e dedicated thyroid ultrasound is also recommended. Criteria for Assigning % of Stenosis / Diameter reduction (Estimation based on the indirect measurements of the internal carotid artery velocities (ICA PSV). 1. Normal (no stenosis)=ICA PSV < 125 cm/s: ratio < 2.0: ICA EDV<40 cm/s. 2. Less than 50% stenosis=ICA PSV < 125 cm/s: ratio < 2.0: ICA EDV<40 cm/s. 3. 50 to 69% stenosis=ICA PSV of 125 to 230 cm/s: ration 2.0 ? 4.0: ICA EDV 40-100 cm/s. 4. Greater than 70% stenosis to near occlusion= ICA PSV > 230 cm/s: ratio > 4.0: ICA EDV > 100 cm/s. 5. Near occlusion= ICA PSV velocities may be low or undetectable: variable ratio and ICA EDV. 6. Total occlusion=unable to detect flow.
[2020-07-02 09:41] VITALS: BMI 28.3
--- NOTE | 2020-07-02 13:21 | ECHOS ---
STRESS ECHOCARDIOGRAM LUMASON: Vial INDICATIONS: Chest pressure, vertigo, syncope. MEDICATIONS: BASELINE HEART RATE: 66 BASELINE BLOOD PRESSURE: 111/60 MAXIMUM HEART RATE: 167 MAXIMUM BLOOD PRESSURE: 169/110 85% MPHR: 136 100% MPHR: 160 METS: MAXIMUM STAGE REACHED: 4 TOTAL EXERCISE TIME: 10:09 CLINICAL INFORMATION: Baseline rhythm is sinus mechanism, rate of 66, normal axis, intervals, normal echocardiogram. Baseline blood pressure 111/60 mmHg. Patient exercised on Ramiro protocol for 10 minute, 9 seconds reaching peak rate of 167 beats per minute which is equal to 100% maximum predicted heart rate. Peak blood pressure 171/60 mmHg. Electrocardiograph monitoring revealed no evidence of diagnostic ischemic ST deviation. FINDINGS: Baseline echocardiogram revealed normal wall motion. At peak exercise, there was normal wall motion augmentation with no hypokinesis or dyskinesis. CONCLUSION: 1. Good exercise tolerance with normal electrocardiograph response to exercise. 2. Normal stress echocardiogram with no evidence of stress-induced ischemia. MMODL / IJN: [id number] /
[2020-07-02] MEDS ORDERED: RX INFO: IV CONTRAST WAS GIVEN 1 EACH MISC MISCELLANE PRN (13:56)
--- NOTE | 2020-07-02 13:59 | ECHOF ---
Referral Reason:chest pain, h/o bicuspid aortic valve MEASUREMENTS -------- HEIGHT: 160.0 cm WEIGHT: 72.6 kg BP: RVIDd: 2.6 cm (< 3.3) IVSd: 1.1 cm (0.6 - 1.1) LVIDd: 4.0 cm (3.9 - 5.3) LVPWd: 1.2 cm (0.6 - 1.1) EDV(Teich): 68 ml IVSs: 1.4 cm LVIDs: 2.5 cm LVPWs: 1.6 cm %IVS Thck: 26 % ESV(Teich): 21 ml EF(Teich): 69 % %FS: 38 % SV(Teich): 47 ml LA Diam: 2.8 cm (2.7 - 3.8) LALs A4C: 4.1 cm LAAs A4C: 11.5 cm LAESV A-L A4C: 28 ml LAESV MOD A4C: 26 ml LALs A2C: 4.4 cm LAAs A2C: 14.5 cm LAESV A-L A2C: 41 ml LAESV MOD A2C: 40 ml LAESV(A-L): 35 ml LAESV Index (A-L): 19.80 ml/m Ao Diam: 2.5 cm (2.0 - 3.7) AV Cusp: 1.8 cm (1.5 - 2.6) MV EXCURSION: 11.562 mm (> 18.000) MV EF SLOPE: 84 mm/s (70 - 150) EPSS: 0.2 cm MV E Jamarcus: 0.66 m/s MV DecT: 262 ms MV Dec Anasco: 2.5 m/s MV A Jamarcus: 0.82 m/s MV E/A Ratio: 0.81 MV PHT: 76 ms LVOT Vmax: 1.22 m/s LVOT maxP.98 mmHg LVOT Vmax: 1.24 m/s LVOT Vmean: 0.89 m/s LVOT maxP.14 mmHg LVOT meanP.58 mmHg LVOT Env.Ti: 249 ms LVOT VTI: 22.2 cm AV Vmax: 2.20 m/s AV maxP.40 mmHg AV Vmax: 2.27 m/s AV Vmean: 1.46 m/s AV maxP.59 mmHg AV meanP.95 mmHg AV Env.Ti: 275 ms AV VTI: 40.1 cm TR Vmax: 2.38 m/s TR maxP.74 mmHg RAP: 5.00 mmHg RVSP: 27.74 mmHg FINDINGS -------- Sinus rhythm. This was a technically good study. LV size, wall thickness and systolic function are normal, with an EF greater than 55%. The left saray tricular size is normal. The right ventricle is normal in size. Normal LA size by volume 22+/-6 ml/m2. The right atrial size is normal. Peak/mean gradient across the Aortic Valve is 20.59mmHg / 9.95mmHg. Aortic valve is functionally bi cuspid and is mildly thickened. The mitral valve is normal. Mild mitral regurgitation is present. The tricuspid valve appears structurally normal. Mild tricuspid regurgitation present. Right vent ricular systolic pressure is normal at < 35 mmHg. There is no pulmonic regurgitation present. The aortic root size is normal. There is no pericardial effusion. CONCLUSIONS -------- 1. LV size, wall thickness and systolic function are normal, with an EF greater than 55%. 2. The left ventricular size is normal. 3. Normal LA size by volume 22+/-6 ml/m2. 4. Peak/mean gradient across the Aortic Valve is 20.59mmHg / 9.95mmHg. 5. Aortic valve is functionally bicuspid and is mildly thickened. 6. Mild mitral regurgitation is present. 7. Mild tricuspid regurgitation present. 8. There is no pericardial effusion. RESOURCE AGENT: Ana Corrales RDCS
--- NOTE | 2020-07-02 14:48 | CT ---
EXAMINATION TYPE: CT angio chest DATE OF EXAM: 07/02/2020 COMPARISON: Chest x-ray from yesterday. HISTORY: possible PE, chest pain for a few days CT DLP: 179.6 mGycm. Automated Exposure Control for Dose Reduction was Utilized. CONTRAST: CTA scan of the thorax is performed with IV Contrast, patient injected with 70cc mL of Isovue 370, pu lmonary embolism protocol. MIP Images are created on CT scanner and reviewed. FINDINGS: LUNGS: Mild biapical pleural/parenchymal scarring. Some dependent and linear atelectasis in both lowe r lobes. No concerning greater than 4 mm noncalcified nodules or masses. There is 3 mm calcified subp leural nodule or granuloma left lower lobe axial image 73. No pleural effusion or pneumothorax seen b ilaterally. MEDIASTINUM: There is suboptimal study with heterogeneity and aortic contrast the right and left hear t systems but no convincing CT evidence for acute pulmonary embolism. Ascending aorta measures up to 3.3 cm diameter image 57. No thoracic aortic dissection identified. There are no greater than 1 cm n oncalcified hilar or mediastinal lymph nodes. No cardiomegaly or pericardial effusion is seen. [place] nary artery calcification is present which is noted marker for underlying coronary artery disease. OTHER: Skyler moderate multilevel spurring in the thoracic spine. IMPRESSION: No CT evidence for acute pulmonary embolism. No suspicious acute pulmonary process.
[2020-07-02 15:46] VITALS: BP 112/68
--- NOTE | 2020-07-02 19:30 | P.DS ---
Providers Date of admission: 07/01/20 14:40 Expected date of discharge: 07/02/20 Attending physician: Michael Gonzalez Consults: 07/01/20 14:40 Consult Physician Urgent Consulting Provider: [facility] Consult Reason/Comments: Unstable angina Do you want consulting provider notified?: Yes Primary care physician: Damir Buchanan [facility] Course: Chief Complaint: Chest pressure History of presenting complaint: This is a pleasant 60-year-old patient of Dr. Buchanan. Chronic stable medical conditions include hypertension, hyperlipidemia, bicuspid aortic valve that is being followed. Patient started taking Zoloft when the had has slowly over time try to taper it off. Patient now presents with 2 days' history of dizziness lightheadedness and heaviness in the chest. Also had an episode of passing out with nausea. No shortness of breath. Not really related to activity. Patient's had 2 prior episodes of passing out. Admitted for the same. Patient intermittently gets leg swelling but not currently. No fever no chills no cough. She smokes about 5 cigarettes a day. Carotid Doppler was unremarkable. Stress echocardiogram was negative for ischemia. Chest CTA was negative for PE. 2-D echocardiogram was unremarkable. We'll have the patient follow-up as an outpatient with cardiology. If symptoms recur patient will then need Holter monitor or event monitor Consultation: Dr. Vázquez from cardiology Physical examination: VITAL SIGNS: 97.8, 69, 16, 112/68, 99% room air GENERAL: Sitting up, comfortable EYES: Pupils equal. Conjunctiva normal. NECK: JVD not raised; masses not palpable. HEART: First and second heart sounds are normal; no edema. LUNGS: Respiratory rate normal; fair air entry. ABDOMEN: Soft, nontender, liver spleen not palpable, no masses palpable. PSYCH: Alert and oriented x3; mood and affect normal. INVESTIGATIONS, reviewed in the clinical context: LDL 129 White count 9.1 hemoglobin 14.8 platelets 477 potassium 4.6 creatinine 0.49 Troponin I 3 negative D-dimer less than 0.17 EKG tracing personally reviewed by me-normal sinus rhythm Chest x-ray film personally reviewed by me-questionable infiltrate right perihilar area 2-D echocardiogram EF preserved Stress echocardiogram negative for ischemia Current Doppler negative for any synovitis stenosis Assessment: -Possibly vasovagal syncope -Chronic nicotine dependence patient cigarette smoker -Essential hypertension -Hyperlipidemia -Bicuspid aortic valve Disposition: Home Patient Condition at Discharge: Stable Plan - Discharge Summary Discharge Rx Participant: No New Discharge Prescriptions: No Action lisinopriL [Zestril] 5 mg PO DAILY Pravastatin Sodium 80 mg PO DAILY Ezetimibe [Zetia] 10 mg PO DAILY Sertraline [Zoloft] 25 mg PO DAILY Aspirin 81 mg PO DAILY hydroCHLOROthiazide 25 mg PO DAILY Discharge Medication List Pravastatin Sodium 80 mg PO DAILY 12/12/18 [History] lisinopriL [Zestril] 5 mg PO DAILY 12/12/18 [History] Ezetimibe [Zetia] 10 mg PO DAILY 03/31/19 [History] Aspirin 81 mg PO DAILY 07/01/20 [History] Sertraline [Zoloft] 25 mg PO DAILY 07/01/20 [History] hydroCHLOROthiazide 25 mg PO DAILY 07/01/20 [History] Follow up Appointment(s)/Referral(s): Jolynn Vázquez MD [STAFF PHYSICIAN] - 3 Weeks ([facility] will call you with an appointment.) Damir Buchanan DO [Primary Care Provider] - 1-2 days (Pt would like to sche dule her own appointment. ) Patient Instructions/Handouts: Chest Pain (GEN), Syncope (GEN)
== END 2020-07-02 16:17 ==
LOC: EC 12:17 → 3NCARDOBS 14:40
PROVIDERS: ADMIT Hospitalist; ATTEND Hospitalist
DX: R07.89 Other chest pain (principal); R11.0 Nausea; R42 Dizziness and giddiness; R61 Generalized hyperhidrosis; R55 Syncope and collapse; R91.8 Other nonspecific abnormal finding of lung field; I10 Essential (primary) hypertension; E78.00 Pure hypercholesterolemia, unspecified; E78.5 Hyperlipidemia, unspecified; Q23.1 Congenital insufficiency of aortic valve; F17.210 Nicotine dependence, cigarettes, uncomplicated; F17.290 Nicotine dependence, other tobacco product, uncomplicated; Z79.82 Long term (current) use of aspirin; Z79.899 Other long term (current) drug therapy; Z88.5 Allergy status to narcotic agent; Z86.010 Personal history of colon polyps; Z98.890 Other specified postprocedural states; Z80.9 Family history of malignant neoplasm, unspecified
CPT/HCPCS: 93005 ×2; 96374; 99291; 36415; 93306; 93351; 85379; 83880; 80061; 80053; 83735; 84484; 85025; 85610; 85730 ×2; 71046; 93880; 71275; G0378 ×2; J1644 ×2; Q9967

== ENCOUNTER → 2021-07-01 | Outpatient (CLI) | payer BC ==
--- NOTE | 2021-07-01 13:05 | XR ---
EXAMINATION TYPE: XR chest 2V DATE OF EXAM: 07/01/2021 COMPARISON: Chest x-ray 07/01/2020 HISTORY: R91.8 abnormal findings lung field TECHNIQUE: Frontal and lateral views of the chest are obtained. FINDINGS: There is no focal air space opacity, pleural effusion, or pneumothorax seen. The cardiac silhouette size is within normal limits. Prominent lung volume may be indicative of underlying COPD. The osseous structures are intact, there is a slight spinal curvature. IMPRESSION: No acute cardiopulmonary process.
== END | disposition home or self-care (01) ==
LOC: RADXRMAIN 09:54
PROVIDERS: ATTEND Family Medicine
DX: R91.8 Other nonspecific abnormal finding of lung field (principal)
CPT/HCPCS: 71046

== ENCOUNTER → 2021-09-16 | Outpatient (CLI) | payer BC ==
--- NOTE | 2021-09-18 09:04 | MM ---
Reason for exam: screening (asymptomatic). Last mammogram was performed 1 year and 4 months ago. History: Patient is postmenopausal and had first child at age 31. US discontinued breast bx LT of the left breast, December 23, 2018. Physical Findings: A clinical breast exam by your physician is recommended on an annual basis and results should be correlated with mammographic findings. MG Screening Mammo w CAD Bilateral CC and MLO view(s) were taken. Prior study comparison: May 01, 2020, bilateral MG diagnostic mammo w CAD [facility]. December 08, 2018, bilateral MG 3d work up w/cad [facility]. December 18, 2015, bilateral MG screening mammo w CAD. The breast tissue is heterogeneously dense. This may lower the sensitivity of mammography. No significant changes when compared with prior studies. ASSESSMENT: Benign, BI-RAD 2 RECOMMENDATION: Routine screening mammogram of both breasts in 1 year.
== END | disposition home or self-care (01) ==
LOC: RADMAMWWP 09:11
PROVIDERS: ATTEND Family Medicine
DX: Z12.31 Encounter for screening mammogram for malignant neoplasm of breast (principal)
CPT/HCPCS: 77067

== ENCOUNTER 2022-02-04 07:40 | Day surgery (SDC) | payer BC ==
[2022-01-30 10:01] VITALS: BMI 21.7
[~2022-02-04 07:40] MED LIST changes: -LIDOCAINE 1% 20 ML VIAL (10MG/ML) FOR IV START INTRADERMA PRN
--- NOTE | 2022-02-04 08:06 | P.GSHP ---
History of Present Illness H&P Date: 02/04/22 CHIEF COMPLAINT: Colon screen HISTORY OF PRESENT ILLNESS: The patient is a 61-year-old female who presents for colon screen. Lower endoscopy was offered for further evaluation and management. PAST MEDICAL HISTORY: Please see list. PAST SURGICAL HISTORY: Please see list. MEDICATIONS: Please see list. ALLERGIES: Please see list. SOCIAL HISTORY: No illicit drug use FAMILY HISTORY: No reports of Crohn disease or ulcerative colitis. REVIEW OF ORGAN SYSTEMS: CONSTITUTIONAL: No reports of fevers or chills. PHYSICAL EXAM: VITAL SIGNS: Stable GENERAL: Well-developed pleasant in no acute distress. HEENT: No scleral icterus. Extraocular movements grossly intact. Moist buccal mucosa. NECK: Supple without lymphadenopathy. CHEST: Unlabored respirations. Equal bilateral excursions. CARDIOVASCULAR: Regular rate and rhythm. Distal 2+ pulses. ABDOMEN: Soft, nontender, nondistended. MUSCULOSKELETAL: No clubbing, cyanosis, or edema. ASSESSMENT: 1. Colon screen. PLAN: 1. Recommend proceeding with a lower endoscopy Past Medical History Past Medical History: Hyperlipidemia, Hypertension Additional Past Medical History / Comment(s): hx. colon polyps, bicuspid valve- dr. ovalles/occWindy ferrer, History of Any Multi-Drug Resistant Organisms: None Reported Past Surgical History: Uterine Ablation Additional Past Surgical History / Comment(s): colonoscopy Past Anesthesia/Blood Transfusion Reactions: No Reported Reaction Smoking Status: Current every day smoker - Past Family History Father Family Medical History: Cancer Medications and Allergies Home Medications Medication Instructions Recorded Confirmed Type lisinopriL [Zestril] 5 mg PO HS 12/12/18 01/30/22 History Ezetimibe [Zetia] 10 mg PO HS 03/31/19 01/30/22 History Sertraline [Zoloft] 25 mg PO HS 07/01/20 01/30/22 History Pravastatin Sodium [Pravachol] 80 mg PO HS 01/30/22 01/30/22 History Allergies Allergy/AdvReac Type Severity Reaction Status Date / Time codeine AdvReac Nausea & Verified 01/30/22 09:51 Vomiting
[2022-02-04 08:31] VITALS: TEMP 98.3
[2022-02-04] MEDS ORDERED: PROPOFOL 10 MG/ML 20 ML VIAL IV ONE (09:19)
--- NOTE | 2022-02-04 10:46 | P.PCN ---
Date of Procedure: 02/04/22 Description of Procedure: PREOPERATIVE DIAGNOSIS: Colonoscopy screening. Tobacco abuse disorder POSTOPERATIVE DIAGNOSIS: Colonoscopy screening. Internal and external hemorrhoids. Tobacco abuse disorder Severe sigmoid diverticulosis Chronic constipation with poor prep OPERATION: Colonoscopy to the ileocecal valve, cecum, appendiceal orifice Colonoscopy with snare polypectomy SURGEON: Lia Jean MD. ANESTHESIA: MAC. INDICATIONS: The patient is a 61-year-old female who presents for her first colonoscopy screening. Benefits and risks were described and informed consent was obtained. DESCRIPTION OF PROCEDURE: The patient had undergone Sutab prep. She had been brought into the operating room and laid in the left lateral decubitus position. After adequate intravenous sedation, the rectum was examined with 2% lidocaine jelly. External hemorrhoids were encountered. The rectal tone was loose. No lesions were palpated in the rectal vault. An Olympus colonoscope was advanced along the rectum to a very tortuous sigmoid colon. The prep was poor with semisolid stool present. The scope was then exchanged for a pediatric colonoscope. The scope was advanced to the ileocecal valve, cecum and appendiceal orifice with abdominal wall pressure. Clear visualization of mucosa was limited due to poor prep. Colonic polyps were removed. The colon was desufflated. During the procedure, the patient had bronchospasms that resolved with oxygenation. Withdrawal time was over 6 minutes. FINDINGS: [place] preparation quality scale 3+ (1-5) Tortuous sigmoid colon requiring abdominal wall pressure External prolapsed hemorrhoids, grade 3 Internal hemorrhoids, grade 3 No arteriovenous malformations. Removal of 1 polyp: - Snare polypectomy at transverse colon, 4 mm adenomatous polyp No focal colitis. RECOMMENDATIONS: 1. Tobacco sensation and counseling advised to 2 bronchospasms 2. She has poor prep will need at least 3 day colonoscopy prep 3. Repeat colonoscopy in 6 months, July 2022 due to limited colonoscopy from poor bowel prep Plan - Discharge Summary New Discharge Prescriptions: Continue lisinopriL [Zestril] 5 mg PO HS Ezetimibe [Zetia] 10 mg PO HS Sertraline [Zoloft] 25 mg PO HS Pravastatin Sodium [Pravachol] 80 mg PO HS Discharge Medication List lisinopriL [Zestril] 5 mg PO HS 12/12/18 [History] Ezetimibe [Zetia] 10 mg PO HS 03/31/19 [History] Sertraline [Zoloft] 25 mg PO HS 07/01/20 [History] Pravastatin Sodium [Pravachol] 80 mg PO HS 01/30/22 [History] Follow up Appointment(s)/Referral(s): Lia Jean MD [STAFF PHYSICIAN] - 03/03/22 Patient Instructions/Handouts: *Surgery [facility] - (Anesthesia) Endoscopy Discharge Instructions, How to Stop Smoking (DC), Diverticulosis (DC), Colorectal Polyps (GEN), Diverticulosis Diet (GEN) Activity/Diet/Wound Care/Special Instructions: Repeat colonoscopy in 6 months, July 2022 Discharge Disposition: HOME SELF-CARE
[2022-02-04 10:55] VITALS: BP 113/70; PULSE 78; RESP 16
== END 2022-02-04 11:09 | disposition home or self-care (01) ==
LOC: ORWHC2ENDO 07:40
PROVIDERS: ATTEND Surgery Plastic and Reconstructive Surgery
DX: Z12.11 Encounter for screening for malignant neoplasm of colon (principal); D12.3 Benign neoplasm of transverse colon; K57.30 Diverticulosis of large intestine without perforation or abscess without bleeding; K64.2 Third degree hemorrhoids; K64.4 Residual hemorrhoidal skin tags; Q43.8 Other specified congenital malformations of intestine; I10 Essential (primary) hypertension; E78.5 Hyperlipidemia, unspecified; Z86.010 Personal history of colon polyps; Z98.890 Other specified postprocedural states; F17.200 Nicotine dependence, unspecified, uncomplicated; Z80.9 Family history of malignant neoplasm, unspecified; Z79.899 Other long term (current) drug therapy; Z88.5 Allergy status to narcotic agent
CPT/HCPCS: 88305; 45385; J2704

== ENCOUNTER → 2022-08-10 | Outpatient (CLI) | payer BC ==
--- NOTE | 2022-08-11 09:20 | CA ---
Transthoracic Echo Report Name: Ana Lilia White Age: 62 Gender: F : 1960 Exam Date: 08/10/2022 11:54 Exam Location: [facility] Ht (in): 62 Wt (lb): 125 Ordering Physician: Damir Buchanan DO Attending/Referring Phys: Chief Digital Media Officer Ana Corrales RDCS Procedure CPT: Indications: Q23.1 AORTIC VALVE INSUFFICIENCY Cardiac Hx: Technical Quality: Good Contrast 1: Total Dose (mL): Contrast 2: Total Dose (mL): MEASUREMENTS (Male / Female) Normal Values 2D ECHO LV Diastolic Diameter PLAX 3.6 cm 4.2 - 5.9 / 3.9 - 5.3 cm LV Systolic Diameter PLAX 2.6 cm IVS Diastolic Thickness 0.9 cm 0.6 - 1.0 / 0.6 - 0.9 cm LVPW Diastolic Thickness 1.4 cm 0.6 - 1.0 / 0.6 - 0.9 cm LV Relative Wall Thickness 0.6 RV Internal Dim ED PLAX 2.0 cm LA Volume 48.6 cm??? 18 - 58 / 22 - 52 cm??? M-MODE Aortic Root Diameter MM 3.2 cm LA Systolic Diameter MM 1.7 cm LA Ao Ratio MM 0.5 MV E Point Septal Separation 0.3 cm AV Cusp Separation MM 1.2 cm DOPPLER AV Peak Velocity 205.9 cm/s AV Peak Gradient 17.0 mmHg AV Mean Velocity 144.4 cm/s AV Mean Gradient 11.4 mmHg AV Velocity Time Integral 42.6 cm LVOT Peak Velocity 97.5 cm/s LVOT Peak Gradient 3.8 mmHg MV Area PHT 2.8 cm??? Mitral E Point Velocity 54.5 cm/s Mitral A Point Velocity 75.0 cm/s Mitral E to A Ratio 0.7 MV Deceleration Time 273.5 ms MV E' Velocity 5.6 cm/s Mitral E to MV E' Ratio 9.8 TR Peak Velocity 204.0 cm/s TR Peak Gradient 16.6 mmHg Right Ventricular Systolic Press 21.6 mmHg FINDINGS Left Ventricle Left ventricular ejection fraction is estimated at 55-60 %.left ventricular cavity size normal. Mildly increased left ventricular wall thickness. Right Ventricle Normal right ventricular size and function. Right Atrium Normal right atrial size. Left Atrium Normal left atrial size. Mitral Valve Mild mitral regurgitation.structurally normal mitral valve. Aortic Valve Normal functioning Bicuspid AOV with mild stenosis, Peak gradient is 21mmHg mean gradient is 11mmHg. moderate calcification, mild aortic regurgitation Tricuspid Valve Structurally normal tricuspid valve.trace to mild tricuspid regurgitation. Pulmonic Valve Structurally normal pulmonic valve. Pericardium Normal pericardium. Aorta Normal size aortic root and proximal ascending aorta. CONCLUSIONS 1. Normal size and systolic function 2. Bicuspid aortic valve with calcified raphe, with mild aortic stenosis and aortic regurgitation 3. Mild mitral with trace to mild tricuspid regurgitation Previewed by: Dr. Jolynn Vázquez MD (Electronically Signed) Final Date: 11 August 2022 09:19
== END | disposition home or self-care (01) ==
LOC: RADECHMAIN 11:41
PROVIDERS: ATTEND Family Medicine
DX: Q23.1 Congenital insufficiency of aortic valve (principal)
CPT/HCPCS: 93306

== ENCOUNTER → 2024-04-11 | Outpatient (CLI) | payer BC ==
--- NOTE | 2024-04-12 18:36 | MM ---
Reason for Exam: Screening (asymptomatic). Last mammogram was performed 2 year(s) and 7 month(s) ago. Patient History: Menarche at age 15. First Full-Term at age 31. Late child-bearing (after 30). Postmenopausal. 12/23/2018, US discontinued breast bx LT on the left side. Risk Values: Jennifer 5 year model risk: 2.0%. NCI Lifetime model risk: 8.1%. Prior Study Comparison: 12/08/2018 Bilateral Diagnostic Mammogram, [facility]. 05/01/2020 Bilateral Diagnostic Mammogram, [facility]. 09/16/2021 Bilateral Screening Mammogram, [facility]. Tissue Density: The breasts are heterogeneously dense, which may obscure small masses. Findings: Analyzed By CAD. New nodularity lower outer quadrant right breast middle depth for which further evaluation is recommended. Chronic nodularity medial anterior left breast. Otherwise, no significant change. Overall Assessment: Incomplete: need additional imaging evaluation, BI-RAD 0 Management: Special View Mammogram of the right breast. Diagnostic Breast Ultrasound of the right breast. . [facility] will attempt to contact patient to return for supplemental views and ultrasound if indicated. Electronically signed and approved by: Genesis Fan M.D. Radiologist
== END | disposition home or self-care (01) ==
LOC: RADCTMAIN 08:52
PROVIDERS: ATTEND Family Medicine
DX: Z12.31 Encounter for screening mammogram for malignant neoplasm of breast (principal); Z12.2 Encounter for screening for malignant neoplasm of respiratory organs; Z78.0 Asymptomatic menopausal state; F17.210 Nicotine dependence, cigarettes, uncomplicated
CPT/HCPCS: 71271; 77063; 77067

== ENCOUNTER → 2024-04-20 | Outpatient (CLI) | payer BC ==
--- NOTE | 2024-04-20 11:02 | USB ---
Reason for Exam: Additional evaluation requested from abnormal screening. Patient History: Menarche at age 15. First Full-Term at age 31. Late child-bearing (after 30). Postmenopausal. 12/23/2018, US discontinued breast bx LT on the left side. Risk Values: Jennifer 5 year model risk: 2.0%. NCI Lifetime model risk: 8.1%. Technique: Method: Targeted. Prior Study Comparison: 05/01/2020 Bilateral Diagnostic Mammogram, [facility]. 09/16/2021 Bilateral Screening Mammogram, [facility]. 04/11/2024 Bilateral MG 3D screening mammo w/cad, [facility]. Findings: The lower section of the breast of the right breast, the axilla of the right breast and the retroareolar of the right breast were scanned. Septated cyst noted at the right 5:00 position 5 cm from the nipple measuring approximately 5 mm. Precautionary six-month follow-up is recommended.. Overall Assessment: Probably benign, BI-RAD 3 Management: Diagnostic Breast Ultrasound of the right breast in 6 months. A clinical breast exam by your physician is recommended on an annual basis and results should be correlated with mammographic findings. This exam should not preclude additional follow-up of suspicious palpable abnormalities. Results were given to the patient verbally at the time of exam. Electronically signed and approved by: Pavel Farr M.D. Radiologis
--- NOTE | 2024-04-20 13:44 | MM ---
Reason for Exam: Additional evaluation requested from abnormal screening. Last screening mammogram was performed less than 1 month ago. Patient History: Menarche at age 15. First Full-Term at age 31. Late child-bearing (after 30). Postmenopausal. 12/23/2018, US discontinued breast bx LT on the left side. Risk Values: Jennifer 5 year model risk: 2.0%. NCI Lifetime model risk: 8.1%. Tissue Density: Right: The breasts are heterogeneously dense, which may obscure small masses. Findings: Analyzed By CAD. 6 mm nodular density seen at the approximate location right breast. Lesion is noted 5 cm from the nipple and ultrasound is recommended. Overall Assessment: Incomplete: need additional imaging evaluation, BI-RAD 0 Management: Diagnostic Breast Ultrasound of the right breast. . Results were given to the patient verbally at the time of exam. Patient should continue monthly self-breast exams. A clinical breast exam by your physician is recommended on an annual basis. This exam should not preclude additional follow-up of suspicious palpable abnormalities. Note on Jennifer scores and lifetime risk: 1. A Jennifer score greater than 3% is considered moderate risk. If this is the case, consider specialist referral to assess eligibility for a risk reducing agent. 2. If overall lifetime risk for the development of breast cancer is 20% or higher, the patient may qualify for future screening with alternating mammogram and breast MRI. Electronically signed and approved by: Pavel Farr M.D. Radiologis
== END | disposition home or self-care (01) ==
LOC: RADMAMWWP 10:26
PROVIDERS: ATTEND Family Medicine
DX: R92.8 Other abnormal and inconclusive findings on diagnostic imaging of breast (principal)
CPT/HCPCS: 77061; 77065

== ENCOUNTER → 2024-09-14 | Outpatient (CLI) | payer BC ==
--- NOTE | 2024-09-15 22:34 | MR ---
EXAMINATION TYPE: MR brain wo con DATE OF EXAM: 09/14/2024 COMPARISON: HISTORY: Memory issues, forgetfulness, Evaluate for CVA CONTRAST: Performed utilizing 0 mL intravenous Gadobutrol gadolinium contrast. TECHNIQUE: Multiplanar, multiecho imaging on a 3.0 Thania magnet is performed through the brain. Stud y is performed within 24 hours of arrival to the hospital. The craniovertebral junction is normal. The pituitary is normal. Diffusion-weighted imaging is performed. No abnormal hyperintensity is present to suggest an acute i ntracranial infarct or acute ischemic change. There are multiple scattered punctate areas of hyperintensity on T2 and Inversion Recovery weighted s equences centrum semiovale and periventricular white matter which are non-specific but can be related to microvascular ischemic changes. Consider multiple sclerosis. Differential diagnosis could include Lyme disease, vasculitis among other etiologies. Ventricles and sulci are appropriate for the patient age. IMPRESSION: 1. Scattered deep white matter changes. Correlate for microvascular ischemic change. Consider multipl e sclerosis. [facility], , 09/15/2024 10:32 PM
== END | disposition home or self-care (01) ==
LOC: RADMRIMAIN 21:00
PROVIDERS: ATTEND Psychiatry & Neurology Neurology
DX: R90.82 White matter disease, unspecified (principal); R41.3 Other amnesia
CPT/HCPCS: 70551

== ENCOUNTER → 2024-10-20 | Outpatient (CLI) | payer BC ==
--- NOTE | 2024-10-20 10:18 | USB ---
Reason for Exam: Follow-up at short interval from prior study. Patient History: Menarche at age 15. First Full-Term at age 31. Late child-bearing (after 30). Postmenopausal. 12/23/2018, US discontinued breast bx LT on the left side. Risk Values: Jennifer 5 year model risk: 2.0%. NCI Lifetime model risk: 8.1%. Technique: Method: Targeted. Prior Study Comparison: 09/16/2021 Bilateral Screening Mammogram, [facility]. 04/11/2024 Bilateral MG 3D screening mammo w/cad, [facility]. 04/20/2024 Right MG 3D work up w/cad RT, [facility]. Findings: The lower inner quadrant of the right breast, the axilla of the right breast and the retroareolar of the right breast were scanned. There are benign-appearing cysts at the 5:00 position 5 cm nipple. This area measures 0.6 x 0.4 x 0.7 cm. Previous measurement 0.5 x 0.4 x 0.9 cm. Overall Assessment: Benign, BI-RAD 2 Management: Screening Mammogram of both breasts in 6 months. A clinical breast exam by your physician is recommended on an annual basis and results should be correlated with mammographic findings. This exam should not preclude additional follow-up of suspicious palpable abnormalities. Results were given to the patient verbally at the time of exam. [facility], , 10/20/2024 10:01 AM. Electronically signed and approved by: Blu Freitsa D.O. Radiologis
== END | disposition home or self-care (01) ==
LOC: RADUSWWP 09:39
PROVIDERS: ATTEND Family Medicine
DX: N60.01 Solitary cyst of right breast (principal); Z78.0 Asymptomatic menopausal state

== ENCOUNTER → 2025-01-03 | Outpatient (CLI) | payer BC | END | disposition home or self-care (01) | LOC: LABWHC1 11:17 | PROVIDERS: ATTEND Psychiatry & Neurology Neurology | DX: G30.9 Alzheimer's disease, unspecified (principal) | CPT/HCPCS: 36415 ==

== ENCOUNTER → 2025-04-23 | Outpatient (CLI) | payer BC ==
--- NOTE | 2025-04-23 09:44 | MM ---
Reason for Exam: Screening (asymptomatic). Last screening mammogram was performed 12 month(s) ago. Patient History: Menarche at age 15. First Full-Term at age 31. Late child-bearing (after 30). Postmenopausal. 12/23/2018, US discontinued breast bx LT on the left side. Risk Values: Jennifer 5 year model risk: 2.1%. NCI Lifetime model risk: 7.8%. Prior Study Comparison: 09/16/2021 Bilateral Screening Mammogram, [facility]. 04/11/2024 Bilateral MG 3D screening mammo w/cad, [facility]. 04/20/2024 Right MG 3D work up w/cad RT, [facility]. Tissue Density: The breasts are heterogeneously dense, which may obscure small masses. Findings: Analyzed By CAD. Chronic nodularity anterior left breast. There is no suspicious group of microcalcifications or new suspicious mass in either breast. Overall Assessment: Benign, BI-RAD 2 Management: Screening Mammogram of both breasts in 1 year. Patient should continue monthly self-breast exams. A clinical breast exam by your physician is recommended on an annual basis. This exam should not preclude additional follow-up of suspicious palpable abnormalities. Note on Jennifer scores and lifetime risk: 1. A Jennifer score greater than 3% is considered moderate risk. If this is the case, consider specialist referral to assess eligibility for a risk reducing agent. 2. If overall lifetime risk for the development of breast cancer is 20% or higher, the patient may qualify for future screening with alternating mammogram and breast MRI. [facility], , 04/23/2025 9:41 AM. Electronically signed and approved by: Genesis Fan M.D. Radiologist
== END | disposition home or self-care (01) ==
LOC: RADMAMWWP 07:49
PROVIDERS: ATTEND Family Medicine
DX: Z12.31 Encounter for screening mammogram for malignant neoplasm of breast (principal); R92.333 Mammographic heterogeneous density, bilateral breasts; Z78.0 Asymptomatic menopausal state
CPT/HCPCS: 77063; 77067